=== PATIENT | female | born 1965 | race Caucasian/White ===

== ENCOUNTER 2018-05-21 19:28 | Emergency (ER) | END 2018-05-21 21:53 | disposition home or self-care (01) ==

== ENCOUNTER 2018-09-17 19:36 | Emergency (ER) | END 2018-09-17 21:26 | disposition home or self-care (01) ==

== ENCOUNTER 2019-01-17 07:26 | Emergency (ER) | payer OTHER ==
[~2019-01-17] VITALS: Ht 165.1 cm; Wt 48.5 kg
[~2019-01-17 07:26] MED LIST: D-ME473S2 PO; HYDR-842 PO; OMEP20CA16 PO
[2019-01-17 07:30] VITALS: Ht 165.1 cm; Wt 48.5 kg
[2019-01-17] MEDS ORDERED: ONDANSETRON 4 MG INJ IV STA (07:44)
[2019-01-17] MEDS ORDERED: morphine 4 MG/ML VIAL IV STA (07:44)
[2019-01-17] MEDS ORDERED: CIPR500T4 PO (09:08)
[2019-01-17] MEDS ORDERED: METR500T PO (09:08)
[2019-01-17] MEDS ORDERED: ONDA4TAB14 PO (09:08)
[2019-01-17] MEDS ORDERED: IBUP-1542 PO (09:08)
[2019-01-17 10:46] VITALS: BP 108/62; PULSE 58; RESP 17
--- NOTE | 2019-01-17 12:26 | ERD ---
ER Documentation Chief Complaint Chief Complaint RLQ abdominal pain x 1 month HPI Patient is a 53-year-old female with no medical problems who presents with abdominal pain. Lower quadrant abdominal pain and right-sided flank pain which started more than 1 month ago. She said her pain was worse today which is why she came to the emergency department. The pain comes and goes. She has no fevers. She has no nausea or vomiting. She has had no treatment as of yet. Upon review of old medical records this is the patient's sixth visit to the ER since 2012. The patient does not know the name of the primary doctor. ROS All systems reviewed and are negative except as per history of present illness. Medications Home Meds Active Scripts Ondansetron (Ondansetron Odt) 4 Mg Tab.rapdis, 4 MG PO Q6H PRN for NAUSEA AND/OR VOMITING, #10 TAB Prov:FARIDEH HOLT MD 01/17/19 Ibuprofen* (Motrin*) 600 Mg Tab, 600 MG PO Q6H PRN for PAIN AND OR ELEVATED TEMP, #30 TAB Prov:FARIDEH HOLT MD 01/17/19 Metronidazole* (Flagyl*) 500 Mg Tablet, 500 MG PO TID for 7 Days, TAB Prov:FARIDEH HOLT MD 01/17/19 Ciprofloxacin Hcl* (Ciprofloxacin Hcl*) 500 Mg Tablet, 500 MG PO BID for 7 Days, TAB Prov:FARIDEH HOLT MD 01/17/19 Discontinued Reported Medications Omeprazole* (Omeprazole*) 20 Mg Capsule.dr, 40 MG PO DAILY 06/21/13 Discontinued Scripts Dextromethorphan Hb-Promethazine Hcl* (Promethazine DM* Syrup) 473 Ml Syrup, 5 ML PO Q6 PRN for COUGH for 5 Days, ML 6 oz Prov:KLAUDIA PAUL MD 09/17/18 Hydroxyzine Hcl* (Atarax*) 25 Mg Tab, 25 MG PO QHS PRN for ITCHING, #10 TAB Prov:BERNY ROUSSEAU 05/21/18 Allergies Allergies: Coded Allergies: No Known Allergy (Unverified , 01/17/19) PMhx/Soc History of Surgery: Yes (BREAST LUMP REMOVAL) Anesthesia Reaction: No Hx Neurological Disorder: No Hx Respiratory Disorders: No Hx Cardiac Disorders: No Hx Psychiatric Problems: No Hx Miscellaneous Medical Probl: No Hx Alcohol Use: No Hx Substance Use: No Hx Tobacco Use: No Smoking Status: Never smoker FmHx Family History: diabetes Physical Exam Vitals Vital Signs Date Temp Pulse Resp B/P (MAP) Pulse Ox O2 O2 Flow FiO2 Time Delivery Rate 01/17/19 97.8 58 17 108/62 100 Room Air 10:46 (77) 01/17/19 97.8 60 18 127/80 100 07:30 (96) Physical Exam Const: No acute distress Head: Atraumatic Eyes: Normal Conjunctiva ENT: Normal External Ears, Nose and Mouth. Neck: Full range of motion. No meningismus. Resp: Clear to auscultation bilaterally Cardio: Regular rate and rhythm, no murmurs Abd: Soft, right lower quadrant tenderness to palpation without rebound or guarding Skin: No petechiae or rashes Back: No midline or flank tenderness Ext: No cyanosis, or edema Neur: Awake and alert Psych: Normal Mood and Affect Result Diagram: 01/17/19 0750 01/17/19 0750 Results 24 hrs Laboratory Tests Test 01/17/19 07:50 White Blood Count 5.4 10^3/ul Red Blood Count 3.92 10^6/ul Hemoglobin 12.0 g/dl Hematocrit 36.7 % Mean Corpuscular Volume 93.6 fl Mean Corpuscular Hemoglobin 30.6 pg Mean Corpuscular Hemoglobin Concent 32.7 g/dl Red Cell Distribution Width 12.7 % Platelet Count 242 10^3/UL Mean Platelet Volume 9.7 fl Immature Granulocytes % 0.400 % Neutrophils % 45.2 % Lymphocytes % 35.9 % Monocytes % 8.8 % Eosinophils % 9.0 % Basophils % 0.7 % Nucleated Red Blood Cells % 0.0 /100WBC Immature Granulocytes # 0.020 10^3/ul Neutrophils # 2.4 10^3/ul Lymphocytes # 1.9 10^3/ul Monocytes # 0.5 10^3/ul Eosinophils # 0.5 10^3/ul Basophils # 0.0 10^3/ul Nucleated Red Blood Cells # 0.0 10^3/ul Urine Color YELLOW Urine Clarity CLEAR Urine pH 6.0 Urine Specific [place] 1.010 Urine Ketones NEGATIVE mg/dL Urine Nitrite NEGATIVE mg/dL Urine Bilirubin NEGATIVE mg/dL Urine Urobilinogen NEGATIVE mg/dL Urine Leukocyte Esterase NEGATIVE [place]il[place]/ul Urine Microscopic RBC 3 /HPF Urine Microscopic WBC 1 /HPF Urine Squamous Epithelial Cells FEW /HPF Urine Hemoglobin NEGATIVE mg/dL Urine Glucose NEGATIVE mg/dL Urine Total Protein NEGATIVE mg/dl Sodium Level 141 mmol/L Potassium Level 3.8 mmol/L Chloride Level 107 mmol/L Carbon Dioxide Level 27 mmol/L Anion Gap 7 Blood Urea Nitrogen 16 mg/dl Creatinine 0.72 mg/dl Est Glomerular Filtrat Rate mL/min > 60 mL/min Glucose Level 91 mg/dl Calcium Level 9.3 mg/dl Total Bilirubin 0.7 mg/dl Direct Bilirubin 0.00 mg/dl Indirect Bilirubin 0.7 mg/dl Aspartate Amino Transf (AST/SGOT) 23 IU/L Alanine Aminotransferase (ALT/SGPT) 15 IU/L Alkaline Phosphatase 80 IU/L Total Protein 7.4 g/dl Albumin 4.1 g/dl Globulin 3.30 g/dl Albumin/Globulin Ratio 1.24 Lipase 93 U/L Current Medications Medications Dose Sig/Sola Start Time Status Last (Trade) Ordered Route PRN Stop Time Admin Dose Reason Admin Morphine 4 mg ONCE STAT 01/17/19 DC 01/17/19 Sulfate IV 07:44 01/17/19 07:59 (morphine) 07:46 Ondansetron 4 mg ONCE STAT 01/17/19 DC 01/17/19 HCl (Zofran IV 07:44 01/17/19 07:59 Inj) 07:46 Procedures/MDM CT abdomen pelvis read by radiology shows possible colitis. Patient is a 53-year-old female who presents with acute colitis. The patient is otherwise well-appearing with stable vital signs and no fever. I believe outpatient management is appropriate but the patient will need close follow-up with her primary doctor within 24-48 hours for reevaluation. She can return sooner for any worsening symptoms. Departure Diagnosis: Primary Impression: Colitis Additional Impression: Abdominal pain Abdominal location: right lower quadrant Qualified Codes: R10.31 - Right lower quadrant pain Condition: Fair Patient Instructions: Diverticulitis Referrals: Your doctor Additional Instructions: Llame al doctor MAANA y kimber mignon YA PARA DENTRO DE 1-2 JUARES.Dgale a la secretaria que nosotros le instruimos hacer esta ya.Avise o llame si munson condicin se empeora antes de la ya. Regresa aqui si peor o no mejor. FARIDEH HOLT MD Jan 17, 2019 12:26
== END 2019-01-17 10:54 | disposition home or self-care (01) ==
LOC: E/R 07:26
DX: K52.9 Noninfective gastroenteritis and colitis, unspecified (principal)
CPT/HCPCS: 36415; 74176; 80053; 81003; 83690; 85025; 96374; 96375; J2270; J2405; Z7502

== ENCOUNTER 2019-02-18 20:17 | Emergency (ER) | payer OTHER ==
[~2019-02-18] VITALS: Ht 154.9 cm; Wt 48.9 kg
[~2019-02-18 20:17] MED LIST changes: +CIPR500T4 PO; -D-ME473S2 PO; -HYDR-842 PO; +IBUP-1542 PO; +METR500T PO; -OMEP20CA16 PO; +ONDA4TAB14 PO
[2019-02-18 20:30] VITALS: BP 118/70; PULSE 58; RESP 16; Ht 154.9 cm; Wt 48.9 kg
--- NOTE | 2019-02-19 01:02 | ERD ---
ER Documentation Chief Complaint Chief Complaint neck pain w/ painful lymph node x2 months HPI 53-year-old female no significant past medical history presents for neck pain and swelling x2 months. She states that she has a nodule over the right side of her neck. States that it is intermittently painful. She states pain is 4 out of 10. Denies fevers or chills. Denies chest pain or shortness of breath. She has dizziness and states that she feels tired at times. No treatments tried at home. No other modifying factors noted. ROS All systems reviewed and are negative except as per history of present illness. Medications Home Meds Active Scripts Ondansetron (Ondansetron Odt) 4 Mg Tab.rapdis, 4 MG PO Q6H PRN for NAUSEA AND/OR VOMITING, #10 TAB Prov:FARIDEH HOLT MD 01/17/19 Ibuprofen* (Motrin*) 600 Mg Tab, 600 MG PO Q6H PRN for PAIN AND OR ELEVATED TEMP, #30 TAB Prov:FARIDEH HOLT MD 01/17/19 Metronidazole* (Flagyl*) 500 Mg Tablet, 500 MG PO TID for 7 Days, TAB Prov:FARIDEH HOLT MD 01/17/19 Ciprofloxacin Hcl* (Ciprofloxacin Hcl*) 500 Mg Tablet, 500 MG PO BID for 7 Days, TAB Prov:FARIDEH HOLT MD 01/17/19 Allergies Allergies: Coded Allergies: No Known Allergy (Unverified , 01/17/19) PMhx/Soc History of Surgery: Yes (BREAST LUMP REMOVAL) Anesthesia Reaction: No Hx Neurological Disorder: No Hx Respiratory Disorders: No Hx Cardiac Disorders: No Hx Psychiatric Problems: No Hx Miscellaneous Medical Probl: No Hx Alcohol Use: No Hx Substance Use: No Hx Tobacco Use: No Smoking Status: Never smoker FmHx Family History: No coronary disease Physical Exam Vitals Vital Signs Date Temp Pulse Resp B/P (MAP) Pulse Ox O2 O2 Flow FiO2 Time Delivery Rate 02/18/19 97.7 58 16 118/70 99 20:30 (86) Physical Exam Const: No acute distress Head: Atraumatic Eyes: Normal Conjunctiva ENT: Normal External Ears, Nose and Mouth. Neck: Full range of motion. No meningismus. There is a small nodule noted over the right neck upper side, soft, freely mobile Resp: Clear to auscultation bilaterally Cardio: Regular rate and rhythm, no murmurs Abd: Soft, non tender, non distended. Normal bowel sounds Skin: No petechiae or rashes Back: No midline or flank tenderness Ext: No cyanosis, or edema Neur: Awake and alert Psych: Normal Mood and Affect Result Diagram: 02/18/19 2345 02/18/19 2345 Results 24 hrs Laboratory Tests Test 02/18/19 23:45 White Blood Count 5.2 10^3/ul Red Blood Count 4.03 10^6/ul Hemoglobin 12.2 g/dl Hematocrit 37.2 % Mean Corpuscular Volume 92.3 fl Mean Corpuscular Hemoglobin 30.3 pg Mean Corpuscular Hemoglobin Concent 32.8 g/dl Red Cell Distribution Width 13.0 % Platelet Count 255 10^3/UL Mean Platelet Volume 10.0 fl Immature Granulocytes % 0.400 % Neutrophils % 44.6 % Lymphocytes % 35.1 % Monocytes % 8.8 % Eosinophils % 10.3 % Basophils % 0.8 % Nucleated Red Blood Cells % 0.0 /100WBC Immature Granulocytes # 0.020 10^3/ul Neutrophils # 2.3 10^3/ul Lymphocytes # 1.8 10^3/ul Monocytes # 0.5 10^3/ul Eosinophils # 0.5 10^3/ul Basophils # 0.0 10^3/ul Nucleated Red Blood Cells # 0.0 10^3/ul Sodium Level 140 mmol/L Potassium Level 3.9 mmol/L Chloride Level 106 mmol/L Carbon Dioxide Level 25 mmol/L Anion Gap 9 Blood Urea Nitrogen 15 mg/dl Creatinine 0.60 mg/dl Est Glomerular Filtrat Rate mL/min > 60 mL/min Glucose Level 127 mg/dl Calcium Level 9.6 mg/dl Total Bilirubin 0.3 mg/dl Direct Bilirubin 0.00 mg/dl Indirect Bilirubin 0.3 mg/dl Aspartate Amino Transf (AST/SGOT) 28 IU/L Alanine Aminotransferase (ALT/SGPT) 25 IU/L Alkaline Phosphatase 86 IU/L Total Protein 7.6 g/dl Albumin 4.4 g/dl Globulin 3.20 g/dl Albumin/Globulin Ratio 1.37 Procedures/MDM Medical Decision Making: Differential diagnosis includes but not limited to lymphadenopathy, lipoma, sarcoma Patient appeared well on physical exam. CBC: no e/o of systemic infection or severe anemia CMP: no e/o severe acidosis, alkalosis, renal failure, diabetic ketoacidosis, liver disease Patient possibly has lymphadenopathy Patient advised to follow-up closely with primary care physician and if symptoms persist she may need an ultrasound. Patient advised to follow up with PCP in 1-2 days. Patient advised to return to ED for new or worsening symptoms. Patient stable on discharge from the ED. Disclaimer: Inadvertent spelling and grammatical errors are likely due to EHR/dictation software use and do not reflect on the overall quality of patient care. Also, please note that the electronic time recorded on this note does not necessarily reflect the actual time of the patient encounter. Departure Diagnosis: Primary Impression: Neck mass Condition: Fair Patient Instructions: Lymphangitis Referrals: [facility] YOU HAVE RECEIVED A MEDICAL SCREENING EXAM AND THE RESULTS INDICATE THAT YOU DO NOT HAVE A CONDITION THAT REQUIRES URGENT TREATMENT IN THE EMERGENCY DEPARTMENT. FURTHER EVALUATION AND TREATMENT OF YOUR CONDITION CAN WAIT UNTIL YOU ARE SEEN IN YOUR DOCTORS OFFICE WITHIN THE NEXT 1-2 DAYS. IT IS YOUR RESPONSIBILITY TO MAKE AN APPOINTMENT FOR FOLOW-UP CARE. IF YOU HAVE A PRIMARY DOCTOR --you should call your primary doctor and schedule an appointment IF YOU DO NOT HAVE A PRIMARY DOCTOR YOU CAN CALL OUR PHYSICIAN REFERRAL HOTLINE AT IF YOU CAN NOT AFFORD TO SEE A PHYSICIAN YOU CAN CHOSE FROM THE FOLLOWING [facility] [address] [facility] [facility] [address] [facility] [email or web address] [address] [facility] [facility] [address] [facility]. [facility] [address] [facility]. [facility]. [address] Additional Instructions: Llame al doctor MAANA y kimber mignon YA PARA DENTRO DE 1-2 JUARES.Dgale a la secr etaria que nosotros le instruimos hacer esta ya.Avise o llame si munson condicin se empeora antes de la ya. Regresa aqui si peor o no mejor. NORAH AUGUST DO February 19, 2019 01:02
== END 2019-02-19 01:55 | disposition left against medical advice (07) ==
LOC: FTE 20:17
DX: R22.1 Localized swelling, mass and lump, neck (principal)
CPT/HCPCS: 80053; 85025; Z7502; 99283

== ENCOUNTER 2019-03-28 08:48 | Emergency (ER) | payer OTHER ==
[~2019-03-28] VITALS: Ht 160 cm; Wt 47.4 kg
[2019-03-28 09:02] VITALS: BP 119/57; PULSE 69; RESP 18; Ht 160 cm; Wt 47.4 kg
[2019-03-28] MEDS ORDERED: NAPR-985 PO (11:58)
--- NOTE | 2019-03-28 12:52 | ERD ---
ER Documentation Chief Complaint Chief Complaint throat pain states feels tongue heavy losing weight for months now HPI 53-year-old female presenting with complaints of weight loss and pain to her throat. Patient states that she was diagnosed with a thyroid nodule and she is concerned that it is worsened and that she has thyroid problems. Patient denies any fever. She has not taken medications for symptoms. Denies other medical problems. NKDA. Surgical history denies. Social history denies ROS All systems reviewed and are negative except as per history of present illness. Medications Home Meds Active Scripts Naproxen* (Naprosyn*) 500 Mg Tablet, 500 MG PO BID PRN for PAIN AND/OR INFLAMMATION, #30 TAB Prov:ALFRED QUICK PA-C 03/28/19 Ondansetron (Ondansetron Odt) 4 Mg Tab.rapdis, 4 MG PO Q6H PRN for NAUSEA AND/OR VOMITING, #10 TAB Prov:FARIDEH HOLT MD 01/17/19 Ibuprofen* (Motrin*) 600 Mg Tab, 600 MG PO Q6H PRN for PAIN AND OR ELEVATED TEMP, #30 TAB Prov:FARIDEH HOLT MD 01/17/19 Metronidazole* (Flagyl*) 500 Mg Tablet, 500 MG PO TID for 7 Days, TAB Prov:FARIDEH HOLT MD 01/17/19 Ciprofloxacin Hcl* (Ciprofloxacin Hcl*) 500 Mg Tablet, 500 MG PO BID for 7 Days, TAB Prov:FARIDEH HOLT MD 01/17/19 Allergies Allergies: Coded Allergies: No Known Allergy (Unverified , 01/17/19) PMhx/Soc History of Surgery: Yes (BREAST LUMP REMOVAL) Anesthesia Reaction: No Hx Neurological Disorder: No Hx Respiratory Disorders: No Hx Cardiac Disorders: No Hx Psychiatric Problems: No Hx Miscellaneous Medical Probl: No Hx Alcohol Use: No Hx Substance Use: No Hx Tobacco Use: No FmHx Family History: No diabetes, No coronary disease, No other Physical Exam Vitals Vital Signs Date Temp Pulse Resp B/P (MAP) Pulse Ox O2 O2 Flow FiO2 Time Delivery Rate 03/28/19 97.8 69 18 119/57 99 09:02 (77) Physical Exam GENERAL: The patient is well-appearing, well-nourished, in no acute distress HEENT: Atraumatic. Conjunctivae are pink. Pupils equal, round, and reactive to light. There is no scleral icterus. Tympanic membranes clear bilaterally. Oropharynx clear. NECK: C-spine is soft and supple. There is no meningismus. There is no cervical lymphadenopathy. CHEST: Clear to auscultation bilaterally. There are no rales, wheezes or rhonchi. HEART: Regular rate and rhythm. No murmurs, clicks, rubs or gallops. No S3 or S4. Result Diagram: 03/28/19 1008 03/28/19 1008 Results 24 hrs Laboratory Tests Test 03/28/19 10:08 White Blood Count 4.3 10^3/ul Red Blood Count 3.99 10^6/ul Hemoglobin 12.3 g/dl Hematocrit 36.8 % Mean Corpuscular Volume 92.2 fl Mean Corpuscular Hemoglobin 30.8 pg Mean Corpuscular Hemoglobin Concent 33.4 g/dl Red Cell Distribution Width 12.2 % Platelet Count 229 10^3/UL Mean Platelet Volume 10.3 fl Immature Granulocytes % 0.200 % Neutrophils % 49.3 % Lymphocytes % 30.8 % Monocytes % 8.2 % Eosinophils % 10.8 % Basophils % 0.7 % Nucleated Red Blood Cells % 0.0 /100WBC Immature Granulocytes # 0.010 10^3/ul Neutrophils # 2.1 10^3/ul Lymphocytes # 1.3 10^3/ul Monocytes # 0.4 10^3/ul Eosinophils # 0.5 10^3/ul Basophils # 0.0 10^3/ul Nucleated Red Blood Cells # 0.0 10^3/ul Urine Color STRAW Urine Clarity CLEAR Urine pH 8.0 Urine Specific [place] 1.003 Urine Ketones NEGATIVE mg/dL Urine Nitrite NEGATIVE mg/dL Urine Bilirubin NEGATIVE mg/dL Urine Urobilinogen NEGATIVE mg/dL Urine Leukocyte Esterase TRACE [place]/ul Urine Microscopic RBC 1 /HPF Urine Microscopic WBC 2 /HPF Urine Squamous Epithelial Cells FEW /HPF Urine Hemoglobin 1+ mg/dL Urine Glucose NEGATIVE mg/dL Urine Total Protein NEGATIVE mg/dl Sodium Level 139 mmol/L Potassium Level 3.5 mmol/L Chloride Level 105 mmol/L Carbon Dioxide Level 28 mmol/L Anion Gap 6 Blood Urea Nitrogen 11 mg/dl Creatinine 0.77 mg/dl Est Glomerular Filtrat Rate mL/min > 60 mL/min Glucose Level 107 mg/dl Calcium Level 9.4 mg/dl Total Bilirubin 0.9 mg/dl Direct Bilirubin 0.00 mg/dl Indirect Bilirubin 0.9 mg/dl Aspartate Amino Transf (AST/SGOT) 24 IU/L Alanine Aminotransferase (ALT/SGPT) 23 IU/L Alkaline Phosphatase 66 IU/L Total Protein 7.6 g/dl Albumin 4.4 g/dl Globulin 3.20 g/dl Albumin/Globulin Ratio 1.37 Thyroid Stimulating Hormone (TSH) 2.890 MIU/L Free Thyroxine Index 2.78 ug/ml Thyroxine (T4) 8.2 ug/dl Triiodothyronine (T3) Uptake 33.9 % Procedures/MDM DIAGNOSTIC IMAGING REPORT Patient: TALON LOGAN : 1965 Age: 53 Sex: F MR #: [id number] DOS: 03/28/19 0956 Ordering MD: KAILEY QUICK PA-C Location: [facility] Room/Bed: PROCEDURE: US thyroid. CLINICAL INDICATION: thyroid nodule history . TECHNIQUE: Multiple sonographic images of the thyroid were obtained utilizing a linear array transducer with grayscale and color-flow and a Doppler imaging. The images were reviewed on a high-resolution PACS workstation. COMPARISON: No prior studies are available for comparison. FINDINGS: The thyroid gland is homogeneous in echogenicity and normal in size. The right lobe measures 3.7 x 1.1 x 1.4 cm. The left lobe measures 3.9 x 1.5 x 1.6 cm. The isthmus measures 0.37 cm. There is a small 0.4 cm nodule of the mid left thyroid gland. IMPRESSION: Small 0.5 cm left thyroid nodule, which does not meet TI-RADS criteria for follow-up or biopsy. Otherwise unremarkable thyroid ultrasound exam. ACR TI-RADS Thyroid Nodule Recommendations TI-RADS 1: Benign, <2% malignancy risk: No FNA TI-RADS 2: Not suspicious, <2% malignancy risk: No FNA TI-RADS 3: Mildly suspicious, 5% malignancy risk: FNA if ? 2.5 cm, follow if ? 1.5 cm TI-RADS 4: Moderately suspicious, 5-20% malignancy risk: FNA if ? 1.5 cm, follow if ? 1.0 cm TI-RADS 5: Highly suspicious, >20% malignancy risk: FNA if ? 1.0 cm, follow if ? 0.5 cm MDM: 53-year-old female presenting with complaints of a thyroid nodule. Patient exam is non-concerning and patient will work is within normal limits. I have low suspicion for thyrotoxicosis or thyroid storm. Thyroid levels are within normal limits and other blood work is stable. Ultrasound is not concerning. Patient is discharged with strict ER precautions and told to follow-up with primary care within 1 to 2 days for close evaluation. Patient is told symptoms change or worsen to return immediately to the ER. All questions answered at discharge Departure Diagnosis: Primary Impression: Thyroid nodule Condition: Stable Patient Instructions: Role of the Thyroid Referrals: [facility] YOU HAVE RECEIVED A MEDICAL SCREENING EXAM AND THE RESULTS INDICATE THAT YOU DO NOT HAVE A CONDITION THAT REQUIRES URGENT TREATMENT IN THE EMERGENCY DEPARTMENT. FURTHER EVALUATION AND TREATMENT OF YOUR CONDITION CAN WAIT UNTIL YOU ARE SEEN IN YOUR DOCTORS OFFICE WITHIN THE NEXT 1-2 DAYS. IT IS YOUR RESPONSIBILITY TO MAKE AN APPOINTMENT FOR FOLOW-UP CARE. IF YOU HAVE A PRIMARY DOCTOR --you should call your primary doctor and schedule an appointment IF YOU DO NOT HAVE A PRIMARY DOCTOR YOU CAN CALL OUR PHYSICIAN REFERRAL HOTLINE AT IF YOU CAN NOT AFFORD TO SEE A PHYSICIAN YOU CAN CHOSE FROM THE FOLLOWING [facility] [address] [facility]. [facility] [address] [facility] [facility] [address] [facility] [facility] [address] [facility]. [facility] [address] [facility]. [facility]. [address] Additional Instructions: FOLLOW UP WITH YOUR PRIMARY CARE PHYSICIAN TOMORROW.Return to this facility if you are not improving as expected. ALFRED QUICK PA-C Mar 28, 2019 12:52
== END 2019-03-28 12:39 | disposition home or self-care (01) ==
LOC: FTE 08:48
DX: E04.1 Nontoxic single thyroid nodule (principal)
CPT/HCPCS: 76536; 80053; 81001; 84436; 84443; 84479; 85025; Z7502